=== PATIENT | female | born 1960 | race Caucasian/White ===

== ENCOUNTER 2025-05-18 15:28 | Emergency (ER) | payer SELFPAY ==
[2025-05-18 15:34] VITALS: BP 140/69; PULSE 82; RESP 16; TEMP 36.8; O2SAT 94
--- NOTE | 2025-05-18 15:45 | CTR_ITS ---
PROCEDURE INFORMATION: Exam: CT Head Without Contrast Exam date and time: 05/18/2025 3:52 PM Age: 64 years old Clinical indication: Injury or trauma; Fall; Blunt trauma (contusions or hematomas); Without loss of consciousness; Additional info: Head injury TECHNIQUE: Imaging protocol: Computed tomography of the head without contrast. Radiation optimization: All CT scans at this facility use at least one of these dose optimization techniques: automated exposure control; mA and/or kV adjustment per patient size (includes targeted exams where dose is matched to clinical indication); or iterative reconstruction. COMPARISON: CT facial bones wo con* [id number] 05/18/2025 3:52 PM RADIATION DOSE METRICS: Total DLP (mGy-cm): 1107.4 FINDINGS: Brain: No acute intracranial hemorrhage. No edema. No mass effect. No focal abnormality in brain parenchyma. Cerebral ventricles: No ventriculomegaly. Paranasal sinuses: There is retention cyst inferiorly in the right maxillary sinus. Mastoid air cells: No mastoid effusion. Bones: There are suspected acute nasal bone fractures. There is an air bubble in the subcutaneous fat in the right side of the nose overlying suspected nasal fracture. Soft tissues: Small focal soft tissue thickening in the left frontal scalp, and mild more diffuse soft tissue thickening in the left side of the forehead for clinical correlation with small focal hematoma/bruising. CT/CT head wo con* [id number] IMPRESSION: No CT evidence of acute intracranial hemorrhage, mass or acute infarction. No acute skull fracture. Acute fractures of bilateral nasal bones. Small soft tissues hematomas in the left frontal scalp and the left side of the forehead.
--- NOTE | 2025-05-18 15:45 | CTR_ITS ---
PROCEDURE INFORMATION: Exam: CT Cervical Spine Without Contrast Exam date and time: 05/18/2025 3:52 PM Age: 64 years old Clinical indication: Injury or trauma; Fall; Additional info: Fall down stairs, midline pain, TECHNIQUE: Imaging protocol: Computed tomography of the cervical spine without contrast. Radiation optimization: All CT scans at this facility use at least one of these dose optimization techniques: automated exposure control; mA and/or kV adjustment per patient size (includes targeted exams where dose is matched to clinical indication); or iterative reconstruction. COMPARISON: No relevant prior studies available. RADIATION DOSE METRICS: Total DLP (mGy-cm): 167.4 FINDINGS: Bones: No acute fracture. Minimal degenerative grade 1 anterolisthesis of C4. Mild degenerative changes with no severe spinal canal stenosis. Degenerative changes in uncovertebral and facet joints contributing to foraminal stenosis (severe right and moderate left at C3-C4, moderate right at C4-C5, moderate left and mild right at C5-C6, moderate right at C6-C7 level). Lungs: Lung apices are normal. Soft tissues: Unremarkable. CT/CT cervical spin wo con* [id number] IMPRESSION: No acute cervical spine fracture.
--- NOTE | 2025-05-18 15:45 | ED_ITS ---
HPI - Head Injury 2 General: Chief complaint: Head Injury Stated complaint: fall hit head Time Seen by Provider: 05/18/25 15:38 History of Present Illness: Patient is a 64-year-old female who presents to the ED following a fall down approximately 12 wooden stairs, landing on a concrete floor. She reports tripping over a box at the top of the stairs and rolling down to the bottom where she struck her head. She sustained a laceration to her forehead with some bleeding. Patient denies loss of consciousness. She reports pain all over but primarily in her head. The patient's daughter reports that the patient has early-onset dementia and they are trying to get her established with a neurologist. Daughter states that the patient's current mental status is at her baseline. Patient denies being on any blood thinners. 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 Related Data Allergies Allergy/AdvReac Type Severity Reaction Status Date / Time No Known Allergies Allergy Verified 05/18/25 15:34 Physical Exam 2 Const: COMMON NORMALS: no acute distress, alert and well nourished GENERAL APPEARANCE: cooperative ORIENTATION/CONSCIOUSNESS: Yes awake OTHER: Dried blood in bilateral nostrils with previous epistaxis. No septal hematoma. Contusion with mild deviation of the bridge of the nose to the right. HENMT: HEAD IMAGES: 1. 3cm laceration into SQ tissue across the forehead. Bleeding controlled with pressure. MOUTH: Normal oral and palatal mucosa present Eye: COMMON NORMALS: conjunctivae normal CONJUNCTIVA: Yes conjunctivae normal Neck/C-Spine: GENERAL: Yes normal visual inspection Resp: COMMON NORMALS: normal respiratory effort, No retractions and No use of accessory muscles Cardio: COMMON NORMALS: regular rhythm and Peripheral pulses 2+ throughout RHYTHM: regular rhythm PERIPHERAL PULSES: Peripheral pulses 2+ throughout GI: COMMON NORMALS: Soft to palpation and non-tender PALPATION: Yes Soft to palpation Back/Pelvis: OTHER: Patient reports some mild midline cervical spine tenderness. No thoracic or lumbar spinal tenderness. Extremity: COMMON NORMALS: full ROM and no pedal edema OTHER: Full range of motion of all 4 extremities without reproducible pain or discomfort. Neuro: COMMON NORMALS: no focal motor deficits SENSORIUM/ORIENTATION: Yes alert Psych: OTHER: Patient is somewhat slow to answer questions however family states that she is currently being evaluated for possible dementia and that she is at her baseline mentation. Patient answers all questions appropriately. Skin: COMMON NORMALS: no rashes or lesions noted GENERAL SKIN EXAM: no rashes or lesions noted Course 2 Vital Signs: Vital signs: Vital Signs Temperature 98.3 F 05/18/25 15:34 Pulse Rate 82 05/18/25 15:34 Respiratory Rate 16 05/18/25 15:34 Blood Pressure 140/69 05/18/25 15:34 Pulse Oximetry 94 05/18/25 15:34 Oxygen Delivery Me thod Room Air 05/18/25 15:34 MDM - Head Injury Medcial Decision Making ROS: Constitutional: Denies loss of consciousness. HEENT: Positive for forehead laceration and facial pain. Musculoskeletal: Reports diffuse pain all over following fall. Neurological: No focal deficits noted. Daughter reports patient at her baseline mental status with early-onset dementia. All other systems negative or unable to be assessed due to patient's baseline cognitive status. MEDICATIONS AND ALLERGIES: - Meds: Antihypertensive medication (specific not identified) - Allergies: None reported PAST HISTORICAL DATA: - PMH: Early-onset dementia, hypertension - PSH: None reported - Social: Retired nurse - Family: No relevant family history reported INITIAL IMPRESSION AND PLAN: Given the history and presentation, the primary working diagnosis is traumatic head injury with forehead laceration and possible intracranial injury. Additional considerations include cervical spine injury, facial fractures, and other traumatic injuries from the fall. Based on this initial impression I will order: 1. Non-contrast head CT to evaluate for intracranial hemorrhage or skull fracture 2. Cervical spine CT to rule out cervical spine injury 3. Maxillofacial CT to evaluate for facial fractures 4. Laceration repair after imaging studies 5. C-collar placement until cervical spine injury ruled out 6. Tetanus prophylaxis if needed (patient reports likely up to date) TEST INTERPRETATIONS: - Head CT: Negative for acute intracranial findings. No acute skull fracture. Small soft tissue hematoma in the left frontal scalp and left side of the forehead. - Cervical Spine CT: Negative for acute spine fracture. - Facial CT: Acute bilateral nasal bone fractures. Possible small hematoma noted in the left side of the forehead and soft tissues. PROCEDURES: Procedure: Laceration Repair Location: Forehead Indication: 3 cm horizontal laceration to forehead extending into subcutaneous tissue Procedure Details: 1. Forehead laceration was irrigated with sterile saline 2. Betadine was used for prep 3. 5 mL of 1% lidocaine with epinephrine was infiltrated around the laceration 4. Three simple interrupted sutures were placed using 4-0 Ethilon Outcome: Patient tolerated the procedure well without any complications FINAL IMPRESSION: Based on all the above, my clinical impression is most compatible with: 1. Traumatic fall with 3 cm forehead laceration requiring suture repair 2. Bilateral nasal bone fractures 3. Soft tissue contusion/hematoma of forehead The clinical picture is not currently suggestive of intracranial hemorrhage, cervical spine injury, or other significant traumatic injuries. Although other conditions were also considered, they were deemed unlikely based on the clinical information available. CLINICAL DISPOSITION: The patient's current condition is stable in my estimation and the most appropriate and indicated disposition at this time is discharge home with family. RATIONALE FOR DISCHARGE: Patient has no evidence of intracranial hemorrhage on CT imaging. Her cervical spine CT is negative for fracture. She has bilateral nasal bone fractures that are non-displaced and do not require acute intervention. Her forehead laceration has been appropriately repaired. She is at her neurological baseline per family and has adequate support at home with her daughter. She demonstrates understanding of discharge instructions and return precautions. Her pain is adequately controlled, and she is ambulatory without assistance. RISK STRATIFICATION AND CLINICAL DECISION RULES APPLIED: [place] CT Head Rule - High Risk due to dangerous mechanism (fall down >[address] was performed and negative for clinically significant findings requiring neurosurgical intervention (sensitivity 100% for findings requiring neurosurgical intervention). [place] C-Spine Rule - High Risk due to dangerous mechanism (fall down >5 stairs). Cervical spine imaging was performed and negative for fracture or instability. CASE SUMMARY: 64-year-old female with early-onset dementia presented after falling down approximately 12 wooden stairs, striking her head on a concrete floor. She sustained a 3 cm horizontal laceration to her forehead and bilateral nasal bone fractures. Patient denied loss of consciousness and was at her neurological baseline per family. C-collar was placed as a precaution. CT imaging of the head, face, and cervical spine revealed bilateral nasal bone fractures but no intracranial hemorrhage or cervical spine injury. The forehead laceration was repaired with three 4-0 Ethilon sutures after appropriate cleaning and anesthesia. Patient tolerated the procedure well. Given the negative head and cervical spine imaging, stable vital signs, and adequate home support, patient was deemed appropriate for discharge with wound care instructions, ENT follow-up for nasal fractures, and clear return precautions. Lab Data Radiology Impressions Cervical Spine CT 05/18/25 15:45 IMPRESSION: No acute cervical spine fracture. Face CT 05/18/25 15:45 IMPRESSION: Acute bilateral nasal bone fractures. Possible small hematoma in the left side of the forehead. Head CT 05/18/25 15:45 IMPRESSION: No CT evidence of acute intracranial hemorrhage, mass or acute infarction. No acute skull fracture. Acute fractures of bilateral nasal bones. Small soft tissues hematomas in the left frontal scalp and the left side of the forehead. ADDENDUM: 05/18/25 1628 Correction of brain findings: Brain: There are small ill-defined hypodense areas in the bilateral periventricular white matter suggestive of chronic small vessel ischemic changes. Ventricles: No hydrocephalus. The ventricles and sulci are prominent in size in keeping with brain atrophy. All radiology interpretation(s) finalized by discharge Discharge Plan Discharge Patient Disposition: Home Clinical Impression: Closed head injury, Facial laceration, Closed fracture nasal bone, Fall Condition: Stable Discharge Orders: Discharge ED (Routine); Ordered 05/18/25 Ordered By: Polo oRberts Discharge Diet: Usual diet Discharge Activity: Increase activity as tolerated Patient Instructions: Nasal Fracture (ED), Laceration (ED), Opioid Safety, Pain Management, Patient Portal & [facility] Instructions Activity Restrictions/Additional Instructions: DIAGNOSIS: Head injury with forehead laceration and bilateral nasal bone fractures WOUND CARE INSTRUCTIONS: 1. Keep the wound clean and dry for 24 hours 2. After 24 hours, you may gently wash the area with mild soap and water 3. Apply a thin layer of antibiotic ointment to the wound twice daily 4. Keep the wound covered with a clean, dry bandage for 2-3 days 5. Sutures should be removed in 7 days - please schedule an appointment with your primary care provider NASAL FRACTURE CARE: 1. Do NOT blow your nose for at least 2 weeks 2. If you need to sneeze, do so with your mouth open 3. Use saline nasal spray twice daily to keep nasal passages moist 4. Apply ice packs to the nose for 15-20 minutes every 2-3 hours for the first 48 hours to reduce swelling 5. Sleep with your head elevated on 2-3 pillows for the first few nights 6. Take pain medication as prescribed FOLLOW-UP: 1. Schedule an appointment with ENT for evaluation of nasal fractures within 1-2 weeks 2. Schedule an appointment with your primary care provider for suture removal in 7 days RETURN TO THE EMERGENCY DEPARTMENT IMMEDIATELY IF YOU EXPERIENCE: 1. Severe headache or worsening headache 2. Repeated vomiting 3. Increasing drowsiness or difficulty waking up 4. Confusion or unusual behavior 5. Seizures 6. Weakness or numbness in any part of your body 7. Difficulty speaking or understanding speech 8. Loss of balance or coordination 9. Clear or bloody fluid draining from ears or nose 10. Increasing swelling, redness, or drainage from the wound 11. Fever greater than 101?F (38.3?C) Print Language: Sammarinese Coding Level of Care Code ED Mangle Roller for Sara Reid
--- NOTE | 2025-05-18 15:45 | CTR_ITS ---
PROCEDURE INFORMATION: Exam: CT Maxillofacial Without Contrast Exam date and time: 05/18/2025 3:52 PM Age: 64 years old Clinical indication: Injury or trauma; Fall; Blunt trauma (contusions or hematomas); Nose; Additional info: Fall down stairs, trauma TECHNIQUE: Imaging protocol: Computed tomography of the face without contrast. Radiation optimization: All CT scans at this facility use at least one of these dose optimization techniques: automated exposure control; mA and/or kV adjustment per patient size (includes targeted exams where dose is matched to clinical indication); or iterative reconstruction. COMPARISON: CT head wo con* [id number] 05/18/2025 3:52 PM RADIATION DOSE METRICS: Total DLP (mGy-cm): 565.7 FINDINGS: Paranasal sinuses: Retention cyst inferiorly in the right maxillary sinus. No air-fluid levels. The Orbital cavities: Orbits are normal. Globes are unremarkable. Bones: Acute fractures of bilateral nasal bones. Trace amount of air in the soft tissues on the right side of the nose overlying the right nasal fracture. No dislocation of the temporomandibular joints. Soft tissues: There is mild soft tissue thickening in the left side of the forehead. CT/CT facial bones wo con* [id number] IMPRESSION: Acute bilateral nasal bone fractures. Possible small hematoma in the left side of the forehead.
[2025-05-18] MEDS: lidocaine-epi 1% 20 mL INJ INJECTION (16:59)
[2025-05-18 17:34] VITALS: BP 147/93; PULSE 92; O2SAT 96
== END 2025-05-18 17:35 | disposition home or self-care (01) ==
PROVIDERS: Emergency Provider Student in an Organized Health Care Education/Training Program
DX: S09.8XXA Other specified injuries of head, initial encounter (principal); S01.81XA Laceration without foreign body of other part of head, initial encounter; S02.2XXA Fracture of nasal bones, initial encounter for closed fracture; W10.9XXA Fall (on) (from) unspecified stairs and steps, initial encounter
CPT/HCPCS: 70450; 70486; 72125; 99284; J9999

== ENCOUNTER 2025-07-28 11:06 | Outpatient (CLI) | payer SELFPAY ==
--- NOTE | 2025-07-28 11:15 | US_ITS ---
WS: [id number] RENAL ULTRASOUND HISTORY: CHRONIC KIDNEY DZ STAGE 3B COMPARISON: None available. TECHNIQUE: 2-D and color Doppler imaging of the kidney submitted. Right kidney: 8.4 cm x 4.3 cm x 4.7 cm. Cortex: 1.3 cm Normal echogenicity with no hydronephrosis or mass. Mild atrophy. Left kidney: 9.8 cm x 4.6 cm x 6.6 cm. Cortex: 1.3 cm Markedly dilated LEFT renal pelvis. Diffuse cortical thinning. No mass identified. Aorta: Normal. Urinary Bladder: Normal distention. US/US renal BI* [id number] IMPRESSION: 1. Severe LEFT hydronephrosis. Recommend follow-up noncontrast CT abdomen and pelvis. Postcontrast imaging may also be necessary if the obstruction is second mishel to a neoplasm. 2. Mild atrophy RIGHT kidney. No obstruction.
== END 2025-07-28 11:07 | disposition home or self-care (01) ==
LOC: RAD 11:11
PROVIDERS: PCP Internal Medicine; Visit Provider Internal Medicine
DX: N18.32 Chronic kidney disease, stage 3b (principal); N13.2 Hydronephrosis with renal and ureteral calculous obstruction; N26.1 Atrophy of kidney (terminal)
CPT/HCPCS: 76770